=== PATIENT | male | born 1980 | race Caucasian/White ===

== ENCOUNTER 2016-10-23 23:30 | Inpatient (IN) | payer OTHER ==
[~2016-10-23] VITALS: Ht 165.1 cm; Wt 87.3 kg
[2016-10-23] MEDS ORDERED: LACTATED RINGER'S 1000ML 1,000 ML IV STA (23:43)
[2016-10-24] VITALS (9 sets, daily range): BP systolic 111–126; BP diastolic 65–78; PULSE 66–86; TEMP 36.7–36.9; O2SAT 93–100; BMI 32.0
[2016-10-24] MEDS ORDERED: HYDROmorphone INJ 1 MG/ML SYR IV PRN (00:15)
[2016-10-24] MEDS ORDERED: ONDANSETRON INJ 2 MG/ML 2 ML VIAL IV PRN ×2 (00:15→07:30)
[2016-10-24] MEDS ORDERED: PROMETHAZINE HCL INJ 12.5 MG in SODIUM CHLORIDE 0.9% 50ML 50 ML IV STA (00:20)
[2016-10-24] MEDS ORDERED: HYDROmorphone INJ 1 MG/ML SYR IV STA (00:20)
[2016-10-24] MEDS ORDERED: GLIP-197 PO (00:21)
--- NOTE | 2016-10-24 00:21 | EMERGENCY ROOM VISIT NOTE ---
History Report prepared by Miley: Kinga Posey Under the Supervision of: Dr. Chiquis Loja D.O. First contact with patient: 23:33 Stated Complaint: ABDOMINAL PAIN History of Present Illness The patient is a 36 year old male who presents to the Emergency Room with complaints of persistent RLQ abdominal pain starting 0200 last night. The patient was awakened from sleep by the pain. His stomach felt like it was in a knot. He went to the bathroom then and vomited. He has been vomiting since then. He went to [facility] and was diagnosed with acute appendicitis. He had a CT which showed a thickened fluid filled appendix measuring 2cm with surround inflammatory changes. He had a white count of 16.7. He was transferred to the ED here because they did not have a surgeon. He received IV fluids and antibiotics. His nausea has improved after being given Zofran. He notes he has had difficulty urinating and right flank pain. He denies any history of kidney or urinary problems. He was diagnosed with diabetes 2 weeks ago and started on glipizide. He notes that he has not taken it because he has been vomiting. He denies any history of hypertension. Source of History: patient, transfer records Onset: 0200 last night Position: abdomen (RLQ) Quality: other (pain) Timing: other (persistent) Associated Symptoms: + nausea, + vomiting, + urinary symptoms Note: Pt reports right flank pain. Review of Systems See HPI for pertinent positives & negatives. A total of 10 systems reviewed and were otherwise negative. Past Medical & Surgical Medical Problems: (1) Appendicitis (2) Diabetes Family History No pertinent family history stated. Social History Marital Status: Occupation Status: employed Current/Historical Medications Scheduled Glipizide (Glipizide Er), 5 MG PO DAILY Trazodone Hcl (Trazodone), 150 MG PO HS Scheduled PRN Albuterol Hfa (Ventolin Hfa), 2 PUFFS INH Q6H PRN for SOB/Wheezing Allergies Coded Allergies: No Known Allergies (Unverified , 10/24/16) Physical Exam Vital Signs Date Time Temp Pulse Resp B/P (MAP) Pulse Ox O2 Delivery O2 Flow Rate FiO2 10/24/16 00:01 96 24 161/99 98 Room Air 10/23/16 23:50 97 23 164/112 95 Room Air 10/23/16 23:39 36.8 95 15 167/111 94 Room Air Physical Exam HEENT: Head - normocephalic and atraumatic Pupils are equal, round, and reactive to light. Extraocular eye muscles are intact, and sclera are anicteric. Nose - moist nasal mucosa without discharge. Mouth - moist buccal mucosa. Oropharynx is nonerythematous and there is no tonsillar exudate or edema noted. Neck: Supple; no JVD, nuchal rigidity, cervical lymphadenopathy. Heart: Regular rate and rhythm. There is a normal S1 and S2 with no murmurs, clicks, or gallops appreciated. Lungs: Clear to auscultation bilaterally with no wheezes, rales, or rhonchi. Abdomen: Soft, RLQ tenderness to palpation, nondistended, with good bowel sounds. There are no palpable pulsatile masses or hepatosplenomegaly. There is no guarding, rigidity, or rebound noted. Back: Right CVA tenderness. Extremities: No evidence of cyanosis, clubbing, or edema. There are easily palpable peripheral pulses. Skin: warm and dry with good turgor and no rashes. Medical Decision & Procedures Laboratory Results Test 10/23/16 23:47 Bedside Glucose 220 mg/dl (70-99) Laboratory results per my review. Medications Administered Medications (Trade) Dose Ordered Sig/Elmo Route Start Time Stop Time Status Last Admin Dose Admin Lactated Ringer's 1,000 ml @ 200 mls/hr Q5H STAT IV 10/23/16 23:43 10/24/16 01:54 DC 10/23/16 23:49 200 MLS/HR Promethazine HCl 12.5 mg/Sodium Chloride 50.5 ml @ 204 mls/hr NOW STAT IV 10/24/16 00:20 10/24/16 00:34 DC 10/24/16 00:44 204 MLS/HR Hydromorphone HCl (Dilaudid Inj) 1 mg NOW STAT IV 10/24/16 00:20 10/24/16 00:22 DC 10/24/16 00:46 1 MG Procedure Medications: Lactated Ringer's 1000 ml @ 200 mls/hr IV, Dilaudid Inj 1 mg IV, Promethazine HCl 12.5 mg/Sodium Chloride 50.5 ml @ 204 mls/hr IV. ED Course 2334: I discussed the patient's case with Dr. Eduardo, [facility] general surgery. He will evaluate the patient for further management. 2337: The patient was evaluated in room B5. A complete history and physical examination were performed. Nursing notes and notes from [facility] were reviewed. I discussed findings and results with him. He verbalized agreement of the treatment plan. The patient will be evaluated for further management and care. 2343: Lactated Ringer's 1000 ml @ 200 mls/hr IV. 0001: I reevaluated the patient. His blood pressure has come down some. His blood sugar was 220. Dr. Eduardo is at bedside. 0020: Dilaudid Inj 1 mg IV, Promethazine HCl 12.5 mg/Sodium Chloride 50.5 ml @ 204 mls/hr IV. Medical Decision The patient is a 36 year old male who presents to the ED with abdominal pain. He was initially evaluated at [facility] where he was diagnosed with acute appendicitis by CT scan. The patient was noted to be hyperglycemic as he was recently diagnosed with diabetes and started on glipizide. Upon arrival to our emergency department, the patient was hypertensive. This began to come down on its own. Consults Time Called: 2330 Consulting Physician: Dr. Eduardo, [facility] general surgery Returned Call: [phone] I discussed the patient's case with him. He will evaluate the patient for further management. Impression Primary Impression: Acute appendicitis Additional Impression: Hyperglycemia Scribe Attestation The scribe's documentation has been prepared under my direction and personally reviewed by me in its entirety. I confirm that the note above accurately reflects all work, treatment, procedures, and medical decision making performed by me. Departure Information Dispostion Being Evaluated By Surgeon Referrals No Doctor, Assigned (PCP) Problem Qualifiers Primary Impression: Acute appendicitis Acute appendicitis type: with localized peritonitis Qualified Codes: K35.3 - Acute appendicitis with localized peritonitis
[2016-10-24] MEDS ORDERED: TRAZ100T29 PO (00:22)
[2016-10-24] MEDS ORDERED: VNTHFA/IN INH (00:23)
[2016-10-24] MEDS ORDERED: PROMETHAZINE HCL INJ 25 MG/ML 1 ML VIAL ONE (00:34)
--- NOTE | 2016-10-24 00:44 | History & Physical Bridge Note ---
H&P Re-Evaluation Bridge Note: I have examined the patient, reviewed the History & Physical and in the interval since the performance of the History & Physical I have noted the following changes of clinical significance: No changes noted h and p dictated stat line confirmation [id number]. dx acute appendicitis plan admit hydrate to OR for lap appy possible open after rehydration and med evaluation
[2016-10-24] MEDS ORDERED: PIPERACILL/TAZOBAC IV 3.375 GM in DEXTROSE 5% 100ML 100 ML IV STA (00:47)
--- NOTE | 2016-10-24 00:57 | Medical Consult ---
Consultation Date of Consultation: Oct 24, 2016. Attending Physician: Reason for Consultation: DM/ HTN/ preop assess History of Present Illness This is a 36 yo m with a history of DM ( recently diagnosed) and asthma that is presenting to us as a transfer from [place] for acute appendicitis. The patient notes that at 0200 the night prior the patient has sudden onset of vomiting with abdominal cramping. He has been vomiting non stop since 0200 and today started to suffer from right lower abdominal pain. He was evaluated in [place] and patient was found to have an elevated Bilirubin and leukocytosis and patient was sent to [facility] for further management. He currently notes he has 10/10 pain in the RLQ that is radiates to the mid abd upon palpation only. It is sharp in nature and improves if he does not move. He notes that he has never had any blood in his vomitus but has evolved from a yellow colour to green. He had diarrhea yesterday however this has since resolved. He does also feel " winded" but without chest pain. When discussing his past medical history he was only recently diagnosed with diabetes by his PCP. He was trialed on metformin however was unable to tolerate the GI side effects so he was changed to Glipizide. He has a history of asthma that he only uses albuterol for. He notes he uses it on a near daily basis and does not have a ICS for control. Finally, he notes he has has lost a total of 100 pounds in the last 3 years which is completely unintentional. Past Medical/Surgical History Medical Problems: (1) Acute appendicitis Status: Acute (2) Hyperglycemia Status: Acute Family History Stroke FATHER, Onset:50 Social History Smoking Status: Current Every Day Smoker Smokeless Tobacco Use: No Alcohol Use: socially Drug Use: none Marital Status: Housing Status: lives with family Occupation Status: employed Allergies Coded Allergies: No Known Allergies (Unverified , 10/24/16) Current Inpatient Medications Current Inpatient Medications Medications (Trade) Dose Ordered Sig/Elmo Route Start Time Stop Time Status Last Admin Dose Admin Lactated Ringer's 1,000 ml @ 200 mls/hr Q5H STAT IV 10/23/16 23:43 10/24/16 04:42 10/23/16 23:49 200 MLS/HR Lactated Ringer's 1,000 ml @ 200 mls/hr Q5H IV 10/24/16 00:15 11/23/16 00:14 UNV Piperacillin Sod/ Tazobactam Sod 3.375 gm/Dextrose 115 ml @ 200 mls/hr ONE STAT IV 10/24/16 00:47 10/24/16 01:21 Hydromorphone HCl (Dilaudid Inj) 1 mg Q3R PRN IV 10/24/16 00:15 11/07/16 00:14 Ondansetron HCl (Zofran Inj) 4 mg Q6H PRN IV 10/24/16 00:15 11/23/16 00:14 Review of Systems Constitutional: + chills, + sweats, No fever Eyes: No worsening of vision ENT: No hearing loss Respiratory: + shortness of breath, No cough, No sputum, No wheezing, No dyspnea on exertion, No dyspnea at rest Cardiovascular: No chest pain Abdomen: + pain, + nausea, + vomiting, + diarrhea, No constipation, No GI bleeding Musculoskeletal: No joint pain, No muscle pain Genitourinary - Male: No hematuria, No urinary incontinence Neurologic: No weakness, No numbness/tingling, No balance problems Psychiatric: No depression symptoms Endocrine: No fatigue Hematologic / Lymphatic: No abnormal bleeding/bruising Integumentary: No rash Physical Exam Date Time Temp Pulse Resp B/P (MAP) Pulse Ox O2 Delivery O2 Flow Rate FiO2 10/24/16 00:55 103 18 160/107 96 10/24/16 00:45 103 18 160/107 96 Nasal Cannula 2.0 10/24/16 00:44 88 Room Air 10/24/16 00:01 96 24 161/99 98 Room Air 10/23/16 23:50 97 23 164/112 95 Room Air 10/23/16 23:39 36.8 95 15 167/111 94 Room Air General Appearance: no apparent distress Head: normocephalic, atraumatic Eyes: normal inspection ENT: normal ENT inspection Neck: supple Respiratory/Chest: normal breath sounds, no respiratory distress, no accessory muscle use Cardiovascular: regular rate, rhythm, no murmur, normal peripheral pulses Abdomen/GI: normal bowel sounds, + tenderness (RLQ), + guarding Back: normal inspection Extremities/Musculoskelatal: normal inspection, no calf tenderness, no pedal edema Neurologic/Psych: alert, normal mood/affect, oriented x 3 Skin: normal color, warm/dry, no rash Lymphatic: no adenopathy Laboratory Results Last 24 Hours Test 10/23/16 23:47 Bedside Glucose 220 mg/dl Assessment & Plan This is a 36 yo m suffering from acute appendicitis and has a history of DM and asthma Per Op Assessment; RCRI 0.9% - patient does not have a strong CVS history, no History of ND or stroke - Based on RCRI patient is an acceptable candidate for this surgery - Pre op EKG and CXR per primary Acute appendicitis - Pain control per primary team - plan is for surgery in the am - LR for hydration per primary team - elevated bilirubin in [place], INR level to assess liver function DMII - glipizide held while NPO for surgery - Insulin CF of 30, assess for adjustment - BSG AC/ HS Asthma- Mild persistent asthma - Duoneb available prn - patient would benefit from a daily low dose ICS as his asthma is currently not well controlled Unintentional weight loss - concerning for malignancy, consider screening for colon ca and other malignancies in outpt setting - this is also associated with DM however. Insomnia - Trazodone hs cont'd DVT Prophylaxis SCD and consider chemical prophylaxis post op FULL CODE Resident Physician Supervision Note: Pt seen/examined independently. I discussed the case with the resident and agree with the findings and plan as documented in the note. Any exceptions or clarifications are listed here: 36 y/o M Hx asthma and DM presenting with abdominal pain and diagnosed with appendicitis - subsequently admitted by surgery. We are asked to see for ezequiel- op management. OE AAO x 3 S1,2 R CTAB Avoided abdominal palpation No CCE P: Agree with RCRI assessment per resident - no obvious need for further workup prior to surgery - med will follow in post-op period Documented By: Onur Ricks Additional Copies To Natanael Shah D.O.
[2016-10-24] MEDS ORDERED: ALBUT/IPRATROP 3MG/0.5MG NEB 3 ML VIAL INH PRN (01:00)
--- NOTE | 2016-10-24 01:20 | HISTORY & PHYSICAL EXAMINATION ---
DATE OF ADMISSION: 10/24/2016 Seen in the Emergency Room at 12:00 midnight on 10/24/2016. SUMMARY: This is a 36-year-old gentleman that I was called by Dr. iPnedo from [facility] at approximately 9:00 last evening with the patient that presented there with approximately 24-hour history of abdominal pain, vomiting that progressively got worse with pain in the right lower quadrant, and had a CAT scan of the abdomen that showed the patient had acute uncomplicated appendicitis. He wanted to know if the patient could be transferred here to [facility] and I asked them to transfer to the ER and let ER physician here see the patient, which they did. The patient apparently has had as stated above 24-hour history of ongoing emesis with abdominal pain progressively getting worse to the point that he was seen down in the Emergency Room with the above findings. PAST MEDICAL HISTORY: Pretty much unremarkable except that he stated that in the last 2 or 3 weeks prior to admission, he was diagnosed with diabetes and has been started on a pill namely glipizide. Other than that, his past medical history is pretty much unremarkable. He does have a history of smoking and occasional alcohol use. He stated he has lost lisy 100lbs last few years unintentional ? ALLERGIES: He has no known allergies. FAMILY HISTORY: Noncontributory. PAST SURGICAL HISTORY: He denies any previous surgery. PHYSICAL EXAMINATION: GENERAL: As I see him down in the Emergency Room at this time, Gwyn looks significantly dry, although he did have already a liter of fluid at [facility] and IV is running at 200 now. HEAD: Normocephalic. EYES: PERRLA but he does have a little scleral icterus. NECK: No cervical lymphadenopathy. HEART: Normal sinus rhythm. LUNGS: Clear. His pulse rate is probably 96. ABDOMEN: Soft, it is nontender except exquisite tenderness in the right flank area and right lower quadrant area consistent with the above findings of appendicitis. He does seem like he has lost some weight 100 lbs last few years by clinical exam, easily mobile redundant fatty apron his BMI is 31. EXTREMITIES: Grossly normal. The CAT scan report was reviewed. A 2 cm appendix with no periappendiceal fluid.(denies flushing or diarrhea). LABORATORY DATA: White count from [facility] showed him to have a white count of 16,000 with a significant left shift. Hemoglobin is 18.9. BUN is 14 with a creatinine of 1.2. Bilirubin total is 3.0. VITAL SIGNS: Temperature of 36.8, pulse rate 95-96, his respiratory rate is 24, his blood pressure is 161/99, O2 sats 98% on room air. Also noted in his history is the patient has asthma and he takes albuterol on a p.r.n. basis but not routinely. IMPRESSION: With the above findings, no real extreme need to rich into surgery at this point. I discussed with the patient to resuscitate him fluid estrada as he appeared clinically dry, have medicine see him for his diabetes which is mildly elevated with blood sugar of 260 but his hypertension also which in the ER may be related to pain. We will proceed with laparoscopic appendectomy, possible open in a few hours. Risks and complications were explained to the patient including bleeding, infection, converting to an open procedure, and he would like to proceed accordingly. He already had Zosyn down in the ER at [facility] at approximately 9:00 last evening, we will repeat another dose at about 3:00 a.m. MTDD
[2016-10-24] MEDS ORDERED: ALBUT/IPRATROP 3MG/0.5MG NEB 3 ML VIAL INH STA (01:52)
[2016-10-24] MEDS ORDERED: LACTATED RINGER'S 1000ML 1,000 ML IV SCH (02:00)
[2016-10-24] MEDS ORDERED: GLUCOSE 10 TABS/TUBE PO PRN (02:00)
[2016-10-24] MEDS ORDERED: DEXTROSE 50% 50 ML SYR IV PRN (02:00)
[2016-10-24] MEDS ORDERED: GLUCOSE 40% GEL 15 GM TUBE PO PRN (02:00)
[2016-10-24] MEDS ORDERED: GLUCAGON FOR INJ 1 MG VIAL SQ PRN (02:00)
[2016-10-24 02:34] LABS: BASO % 0.1 %; BASO ABS # 0.02 K/uL (0-0.2); COMPLETE YES; EOS % 0.1 %; HEMATOCRIT 50.9 % (42-52); IG% 0.2 %; LYMPH % 6.2 %; LYMPH ABS # 1.05 K/uL (1.2-3.4); MEAN CORPUSCULAR HEMOGLOBIN 28.5 pg (25-34); MEAN PLATELET VOLUME 12.1 fL (7.4-10.4); MONO % 9.3 %; NEUT % 84.1 %; PLATELET COUNT 196 K/uL (130-400); RED BLOOD COUNT 6.06 M/uL (4.7-6.1); WHITE BLOOD COUNT 17.05 K/uL (4.8-10.8)
[2016-10-24 02:41] LABS: PARTIAL THROMBOPLASTIN RATIO 1.1; PROTHROMBIN TIME (PATIENT) 11.2 SECONDS (9.0-12.0)
[2016-10-24 02:54] LABS: CALCIUM 8.9 mg/dl (8.5-10.1); CREATININE 0.83 mg/dl (0.60-1.40); POTASSIUM 3.8 mmol/L (3.5-5.1)
[2016-10-24 02:56] LABS: ALB/GLOB RATIO 0.9 (0.9-2)
[2016-10-24] MEDS ORDERED: NURSING DECISION MEDICATION ORDER SCH (03:15)
[2016-10-24] MEDS: INSULIN ASPART 100 UNITS/ML 3 ML PEN SC SCH ×6 (03:22→21:00)
[2016-10-24] MEDS ORDERED: LIDOCAINE/EPINEPHRINE 1% 20 ML VIAL ONE (06:11)
[2016-10-24] MEDS ORDERED: FENTANYL CITRATE INJ 50 MCG/1 ML 2 ML VIAL ONE ×2 (06:15)
[2016-10-24] MEDS ORDERED: MoRPHine SULFATE PF 1 MG/ML 10 ML AMP/VIAL ONE (06:33)
[2016-10-24] MEDS ORDERED: ONDANSETRON INJ 2 MG/ML 2 ML VIAL ONE ×2 (06:52→06:55)
[2016-10-24] MEDS ORDERED: DEXAMETHASONE SOD INJ 4 MG/ML VIAL ONE (06:52)
[2016-10-24] MEDS ORDERED: SUCCINYLCHOLINE CHLORIDE 20 MG/ML 10 ML VIAL IV ONE (06:52)
[2016-10-24] MEDS ORDERED: ROCURONIUM BROMIDE 10 MG/ML 5 ML VIAL IV ONE (06:52)
[2016-10-24] MEDS ORDERED: KETOROLAC TROMETHAMINE 30 MG/ML VIAL ONE (06:55)
[2016-10-24] MEDS ORDERED: INSULIN ASPART 100 UNITS/ML 3 ML PEN SC SCH ×2 (07:00→18:30)
[2016-10-24] MEDS ORDERED: GLYCOPYRROLATE INJ 0.2 MG/ML VIAL ONE (07:04)
[2016-10-24] MEDS ORDERED: NEOSTIGMINE METHYLSULFATE 5 MG/5 ML SYR ONE (07:04)
--- NOTE | 2016-10-24 07:28 | [facility] Operative Report ---
Operative Report Operative Date Oct 24, 2016. Pre-Operative Diagnosis Acute appendicitis Post-Operative Diagnosis Acute appendicitis Procedure(s) Performed Laparoscopic Appendectomy Surgeon Dr. Anant Eduardo It Operations Specialist Surgeon(s) None Estimated Blood Loss 5ML Findings acute non ruptures appendicitis Specimens Micro Urine for Culture and senitivity Permanent specimen A: Appendix Disposition Recovery Room / PACU Indications acute appendicitis Description of Procedure lap appendectomy OR summary dictated confirmation number [id number] I attest to the content of the Intraoperative Record and any orders documented therein. Any exceptions are noted below.
[2016-10-24] MEDS ORDERED: FENTANYL CITRATE INJ 50 MCG/1 ML 2 ML VIAL IV PRN (07:30)
[2016-10-24] MEDS ORDERED: ATROPINE SULFATE 0.1 MG/ML 5ML SYR IV PRN (07:30)
[2016-10-24] MEDS ORDERED: EpHEDrine SULFATE INJ 50 MG/ML AMP IV PRN (07:30)
[2016-10-24] MEDS ORDERED: PNEUMOCOCCAL POLYSACCHARIDES 25 MCG/0.5 ML VIAL/SYR IM. ONE (08:00)
[2016-10-24] MEDS ORDERED: PNEUMOCOCCAL ADMINISTRATION CHARGE ONE (08:00)
--- NOTE | 2016-10-24 08:18 | Anesthesiology Progress Note ---
Anesthesia Post Op Note Date & Time Oct 24, 2016 at 08:18 Vital Signs Pain Intensity: 1 Vital Signs Past 12 Hours Date Time Temp Pulse Resp B/P (MAP) Pulse Ox O2 Delivery O2 Flow Rate FiO2 10/24/16 08:15 36.3 77 18 127/77 96 Nasal Cannula 3 10/24/16 08:05 79 18 129/78 96 Nasal Cannula 3 10/24/16 07:55 76 18 126/74 96 Oxymask 10 10/24/16 07:45 80 18 128/79 97 Oxymask 10 10/24/16 07:36 36.1 84 18 139/87 98 Oxymask 10 10/24/16 02:12 Nasal Cannula 2.0 10/24/16 02:05 36.7 82 16 126/78 96 Room Air 10/24/16 01:30 97 18 122/79 96 Nasal Cannula 2.0 10/24/16 00:55 103 18 160/107 96 10/24/16 00:45 103 18 160/107 96 Nasal Cannula 2.0 10/24/16 00:44 88 Room Air 10/24/16 00:01 96 24 161/99 98 Room Air 10/23/16 23:50 97 23 164/112 95 Room Air 10/23/16 23:39 36.8 95 15 167/111 94 Room Air Notes Mental Status: alert / awake / arousable, participated in evaluation Pt Amnestic to Procedure: Yes Nausea / Vomiting: adequately controlled Pain: adequately controlled Airway Patency, RR, SpO2: stable & adequate BP & HR: stable & adequate Hydration State: stable & adequate Anesthetic Complications: no major complications apparent
[2016-10-24] MEDS ORDERED: PIPERACILL/TAZOBAC IV 3.375 GM in DEXTROSE 5% 100ML 100 ML IV SCH (09:00)
[2016-10-24] MEDS: LACTATED RINGER'S 1000ML 1,000 ML IV SCH ×2 (10:17→18:47)
[2016-10-24] MEDS: OXYCODONE/ACETAMINOPHEN 5-325 TAB PO PRN ×2 (10:32→20:01)
[2016-10-24] MEDS ORDERED: NURSING VERBAL MED ORDER ONE (10:45)
[2016-10-24] MEDS ORDERED: INSULIN GLARGINE SOLOSTAR 100 UNITS/ML 3 ML PEN SC ONE (11:38)
--- NOTE | 2016-10-24 11:56 | Hospitalist Progress Note ---
Hospitalist Progress Note Date of Service Oct 24, 2016. (Salvador Luis MD) Subjective Pt evaluation today including: conversation w/ patient, physical exam, chart review, lab review, conversation w/ consultant dietitian, review of inpatient medication list Pain: None PO Intake: Good Voiding: no voiding problems Patient went for appendectomy this morning with Dr. Eduardo. I saw the patient post op. He denied any abdominal pain, vomiting, diarrhea, or nausea Constitutional: No fever, No chills Respiratory: No cough, No wheezing, No shortness of breath Cardiovascular: No chest pain, No edema, No palpitations Abdomen: No pain, No nausea, No vomiting, No diarrhea Musculoskeletal: No joint pain, No muscle pain Male : No dysuria, No urinary frequency, No incontinence Neurologic: No weakness, No numbness/tingling Heme: No abnormal bleeding/bruising Skin: No rash, No itch, No new/changing skin lesions (Salvador Luis MD) Medications Current Inpatient Medications Medications (Trade) Dose Ordered Sig/Elmo Route Start Time Stop Time Status Last Admin Dose Admin Hydromorphone HCl (Dilaudid Inj) 1 mg Q3R PRN IV 10/24/16 00:15 11/07/16 00:14 Ondansetron HCl (Zofran Inj) 4 mg Q6H PRN IV 10/24/16 00:15 11/23/16 00:14 Albuterol/ Ipratropium (Duoneb) 3 ml Q4R PRN INH 10/24/16 01:00 11/23/16 00:59 Trazodone HCl (Desyrel Tab) 150 mg HS PO 10/24/16 21:00 11/23/16 20:59 Glucose (Glucose 40% Gel) 15-30 GRAMS 15 GRAMS... UD PRN PO 10/24/16 02:00 11/23/16 01:59 Glucose (Glucose Chew Tab) 4-8 Tablets 4 Tabl... UD PRN PO 10/24/16 02:00 11/23/16 01:59 Dextrose (Dextrose 50% 50ML Syringe) 25-50ML OF 50% DW IV FOR... UD PRN IV 10/24/16 02:00 11/23/16 01:59 Glucagon (Glucagon Inj) 1 mg UD PRN SQ 10/24/16 02:00 11/23/16 01:59 Lactated Ringer's 1,000 ml @ 125 mls/hr Q8H IV 10/24/16 07:45 11/23/16 07:44 10/24/16 10:17 125 MLS/HR Heparin Sodium (Porcine) (Heparin Sq 5000 Unit/0.5ml) 5,000 unit Q8 SQ 10/24/16 14:00 11/23/16 13:59 10/24/16 13:32 5,000 UNIT Oxycodone/ Acetaminophen (Percocet 5-325mg Tab) 1 tab Q4H PRN PO 10/24/16 07:45 11/07/16 07:44 10/24/16 10:32 1 TAB Insulin Aspart (novoLOG ASPART) SLIDING SCALE G... ACHS SC 10/24/16 12:00 11/23/16 11:59 10/24/16 13:30 6 UNITS Insulin Glargine (Lantus Solostar Pen) 5 units DAILY SC 10/25/16 09:00 11/24/16 08:59 Piperacillin Sod/ Tazobactam Sod 3.375 gm/Dextrose 115 ml @ 200 mls/hr Q6H IV 10/24/16 16:00 11/03/16 15:59 (Salvador Luis MD) Objective Vital Signs Date Time Temp Pulse Resp B/P (MAP) Pulse Ox O2 Delivery O2 Flow Rate FiO2 10/24/16 11:25 86 16 113/65 (81) 93 Room Air 10/24/16 10:22 83 16 111/66 (81) 93 Room Air 10/24/16 09:25 81 18 120/75 (90) 98 10/24/16 08:57 81 18 118/71 (87) 98 Nasal Cannula 2.0 10/24/16 08:25 36.8 82 18 122/70 (87) 96 Nasal Cannula 3.0 10/24/16 08:25 Nasal Cannula 3.0 10/24/16 08:15 36.3 77 18 127/77 96 Nasal Cannula 3 10/24/16 08:05 79 18 129/78 96 Nasal Cannula 3 10/24/16 07:55 76 18 126/74 96 Oxymask 10 10/24/16 07:45 80 18 128/79 97 Oxymask 10 10/24/16 07:36 36.1 84 18 139/87 98 Oxymask 10 10/24/16 02:12 Nasal Cannula 2.0 10/24/16 02:05 36.7 82 16 126/78 96 Room Air 10/24/16 01:30 97 18 122/79 96 Nasal Cannula 2.0 10/24/16 00:55 103 18 160/107 96 10/24/16 00:45 103 18 160/107 96 Nasal Cannula 2.0 10/24/16 00:44 88 Room Air 10/24/16 00:01 96 24 161/99 98 Room Air 10/23/16 23:50 97 23 164/112 95 Room Air 10/23/16 23:39 36.8 95 15 167/111 94 Room Air (Salvador Luis MD) Physical Exam General Appearance: WD/WN, no apparent distress ENT: hearing grossly normal Respiratory/Chest: lungs clear, no respiratory distress, no accessory muscle use Cardiovascular: regular rate, rhythm, no edema, no JVD, no murmur Abdomen: normal bowel sounds, soft, no organomegaly, + tenderness (mild tenderness throughout, laparascopic incisions on left side of abdomen (without any erythema)), + pertinent finding (no rebound or guarding) Extremities: non-tender, no calf tenderness, normal capillary refill Neurologic/Psychiatric: alert, normal mood/affect, oriented x 3 (Salvador Luis MD) Laboratory Results Last 24 Hours Test 10/23/16 23:47 10/24/16 02:10 10/24/16 05:46 10/24/16 07:42 Bedside Glucose 220 mg/dl 200 mg/dl 184 mg/dl White Blood Count 17.05 K/uL Red Blood Count 6.06 M/uL Hemoglobin 17.3 g/dL Hematocrit 50.9 % Mean Corpuscular Volume 84.0 fL Mean Corpuscular Hemoglobin 28.5 pg Mean Corpuscular Hemoglobin Concent 34.0 g/dl Platelet Count 196 K/uL Mean Platelet Volume 12.1 fL Neutrophils (%) (Auto) 84.1 % Lymphocytes (%) (Auto) 6.2 % Monocytes (%) (Auto) 9.3 % Eosinophils (%) (Auto) 0.1 % Basophils (%) (Auto) 0.1 % Neutrophils # (Auto) 14.34 K/uL Lymphocytes # (Auto) 1.05 K/uL Monocytes # (Auto) 1.59 K/uL Eosinophils # (Auto) 0.01 K/uL Basophils # (Auto) 0.02 K/uL RDW Standard Deviation 37.4 fL RDW Coefficient of Variation 12.5 % Immature Granulocyte % (Auto) 0.2 % Immature Granulocyte # (Auto) 0.04 K/uL Prothrombin Time 11.2 SECONDS Prothromb Time International Ratio 1.0 Activated Partial Thromboplast Time 28.8 SECONDS Partial Thromboplastin Ratio 1.1 Sodium Level 137 mmol/L Potassium Level 3.8 mmol/L Chloride Level 102 mmol/L Carbon Dioxide Level 29 mmol/L Anion Gap 6.0 mmol/L Blood Urea Nitrogen 13 mg/dl Creatinine 0.83 mg/dl Est Creatinine Clear Calc Drug Dose 126.2 ml/min Estimated GFR () 132.1 Estimated GFR (Non- 114.0 BUN/Creatinine Ratio 16.0 Random Glucose 250 mg/dl Calcium Level 8.9 mg/dl Total Bilirubin 3.1 mg/dl Aspartate Amino Transf (AST/SGOT) 4 U/L Alanine Aminotransferase (ALT/SGPT) 26 U/L Alkaline Phosphatase 73 U/L Total Protein 7.5 gm/dl Albumin 3.5 gm/dl Globulin 4.0 gm/dl Albumin/Globulin Ratio 0.9 Lipase 80 U/L Test 10/24/16 08:26 Bedside Glucose 206 mg/dl (Salvador Luis MD) Diagnostic Results Results Past 24 Hours Test 10/23/16 23:47 10/24/16 02:10 10/24/16 05:46 10/24/16 07:42 Range/Units Bedside Glucose 220 200 184 70-99 mg/dl White Blood Count 17.05 4.8-10.8 K/uL Red Blood Count 6.06 4.7-6.1 M/uL Hemoglobin 17.3 14.0-18.0 g/dL Hematocrit 50.9 42-52 % Mean Corpuscular Volume 84.0 80-100 fL Mean Corpuscular Hemoglobin 28.5 25-34 pg Mean Corpuscular Hemoglobin Concent 34.0 32-36 g/dl Platelet Count 196 130-400 K/uL Mean Platelet Volume 12.1 7.4-10.4 fL Neutrophils (%) (Auto) 84.1 % Lymphocytes (%) (Auto) 6.2 % Monocytes (%) (Auto) 9.3 % Eosinophils (%) (Auto) 0.1 % Basophils (%) (Auto) 0.1 % Neutrophils # (Auto) 14.34 1.4-6.5 K/uL Lymphocytes # (Auto) 1.05 1.2-3.4 K/uL Monocytes # (Auto) 1.59 0.11-0.59 K/uL Eosinophils # (Auto) 0.01 0-0.5 K/uL Basophils # (Auto) 0.02 0-0.2 K/uL RDW Standard Deviation 37.4 36.4-46.3 fL RDW Coefficient of Variation 12.5 11.5-14.5 % Immature Granulocyte % (Auto) 0.2 % Immature Granulocyte # (Auto) 0.04 0.00-0.02 K/uL Prothrombin Time 11.2 9.0-12.0 SECONDS Prothromb Time International Ratio 1.0 0.9-1.1 Activated Partial Thromboplast Time 28.8 21.0-31.0 SECONDS Partial Thromboplastin Ratio 1.1 Sodium Level 137 136-145 mmol/L Potassium Level 3.8 3.5-5.1 mmol/L Chloride Level 102 98-107 mmol/L Carbon Dioxide Level 29 21-32 mmol/L Anion Gap 6.0 3-11 mmol/L Blood Urea Nitrogen 13 7-18 mg/dl Creatinine 0.83 0.60-1.40 mg/dl Est Creatinine Clear Calc Drug Dose 126.2 ml/min Estimated GFR () 132.1 Estimated GFR (Non- 114.0 BUN/Creatinine Ratio 16.0 10-20 Random Glucose 250 70-99 mg/dl Calcium Level 8.9 8.5-10.1 mg/dl Total Bilirubin 3.1 0.2-1 mg/dl Aspartate Amino Transf (AST/SGOT) 4 15-37 U/L Alanine Aminotransferase (ALT/SGPT) 26 12-78 U/L Alkaline Phosphatase 73 45-117 U/L Total Protein 7.5 6.4-8.2 gm/dl Albumin 3.5 3.4-5.0 gm/dl Globulin 4.0 2.5-4.0 gm/dl Albumin/Globulin Ratio 0.9 0.9-2 Lipase 80 73-393 U/L Test 10/24/16 08:26 10/24/16 12:04 Range/Units Bedside Glucose 206 260 70-99 mg/dl Microbiology Results 10/24/16 Urine Culture, Received Pending (Salvador Luis MD) Assessment and Plan This is a 36 yo m s/p appendectomy and has a history of DM and asthma. We have been consulted to be involved in the patients medical management Acute appendicitis - Pain control with percocet q4 prn - surgery this am without any rupture - decrease LR to 50mls/hr - Pip Tazo IV per primary team - diet advanced to regular diabetic diet DMII - glipizide held - lantus 5 units qhs and ISS with carb coverage - BSG AC/ HS - Ordered HBA1c - 150 pound unintentional weight loss, likely to be diabetes but must keep differential broad for outpatient workup Asthma- Mild persistent asthma - Duoneb available prn - patient would benefit from a daily low dose ICS as his asthma is currently not well controlled. will defer to PCP Insomnia - Trazodone hs cont'd DVT Prophylaxis - heparin subq 5000 units q8 Dispo - discharge tomorrow - follow up with PCP FULL CODE Continued [facility] stay due to: multiple IV medications needed Discharge planning: home (Salvador Luis MD) Reviewed: Pt Seen/Exam by Me (Beverley Burks MD) History Resident Physician Supervision Note: I interviewed and examined the patient. Discussed with Dr. Luis and agree with findings and plan as documented in the note. Any exceptions or clarifications are listed here: Pt with some abd pain but much improved from previous, no N/V and jimbo diet. He states he has had weight loss of over 100 lbs and polydipsia, polyuria developing for months to years as well. Never had labs until recently with PCP and started on metformin. He cannot recall having a HgbA1C at all. He was called and told his labs were "normal." At home, glucose checks usually 200-240 in AM, 300+ in afternoon, and mid 200s in evening. Started on insulin gtt here post-op due to hyperglycemia in the 300s. Vitals reviewed NAD, AAOx3 RRR no mgr CTAB breathing unlabored Abd+ BS, soft, mild TTP at incision sites but no guarding or rebound tenderness Ext no edema SKin: incision sites with steri strips in place 36 yo male with a h/o DMII, here with acute appendicitis DMII--> recently dxd and placed on metformin with significant diarrhea, switched to glipizide just days prior to admission for acute appy -check A1C for idea of control but based on report of home glucose checks, I suspect HgbA1C will be > 10%. -started Lantus here and now on insulin gtt--> calculate need for insulin tomorrow and dc to home on Lantus with Novolog for largest meal of day for simpler regimen to start Discussed importance of good glycemic control, need for pancreatic rest by using insulin, Ophthalmology consultation as outpt, checking feet daily, will need ACEI and statin eventually as well. Recommend stopping glipizide as doesn' t need when on insulin -consider restarting metformin perhaps at lower dose or XR form to limit diarrhea if pt agreeable Documented By: Beverley Burks (Beverley Burks MD)
--- NOTE | 2016-10-24 12:49 | DIAGNOSTIC IMAGING REPORT ---
CHEST ONE VIEW PORTABLE HISTORY: 36 years-old Male asthma preop preoperative exam. History of asthma. COMPARISON: CT abdomen and pelvis 10/23/2016 TECHNIQUE: Portable upright AP view of the chest FINDINGS: Cardiac silhouette is within normal limits. There is minimal subsegmental atelectasis of the left lung base without pneumothorax, pleural effusion or focal lobar airspace consolidation. Bones are grossly intact. IMPRESSION: Minimal left basilar subsegmental atelectasis without acute cardiopulmonary process. The above report was generated using voice recognition software. It may contain grammatical, syntax or spelling errors. Electronically signed by: Mathieu Lopez M.D. 10/24/2016 12:47 PM Dictated Date/Time: 10/24/2016 12:45 PM
[2016-10-24] MEDS: HEPARIN SOD 5000 UNIT/0.5 ML CARP SQ SCH ×2 (13:32→22:40)
[2016-10-24] MEDS: PIPERACILL/TAZOBAC IV 3.375 GM in DEXTROSE 5% 100ML 100 ML IV SCH ×2 (16:14→22:38)
[2016-10-24] MEDS ORDERED: INSULIN PROTOCOL GOAL RANGE ONE ×2 (18:15→19:00)
[2016-10-24] MEDS ORDERED: INSULIN IV INFUSION PROTOCOL SCH (18:21)
[2016-10-24] MEDS ORDERED: MODERATE STRESS LEVEL ONE (19:00)
[2016-10-24] MEDS ORDERED: INSULIN IV INFUSION PROTOCOL STA (19:00)
[2016-10-24] MEDS ORDERED: INSULIN HUMAN REGULAR IV BOLUS 2 UNIT in SYRINGE 0 ML IV SCH (20:00)
--- NOTE | 2016-10-24 20:35 | OPERATIVE REPORT ---
DATE OF OPERATION: 10/24/2016 SURGEON: Dr. Eduardo. PREOPERATIVE DIAGNOSIS: Acute appendicitis. POSTOPERATIVE DIAGNOSES: Same. Acute nonruptured appendicitis. PROCEDURE: Laparoscopic appendectomy. SUMMARY: The patient was taken to the operating room theater. Mckeon catheter inserted. The abdomen was prepped with Betadine solution and properly draped. I made a small transverse incision above the umbilicus sufficient enough to place a Veress needle followed by CO2 followed by a 5 mm trocar. Point of entry inspected and no injury identified. Direct visualization, we had the patient in the left lateral position, slight Trendelenburg and visualized right lower quadrant, could not see anything of significant as far as surface of the bowel or cecal area. Therefore, we placed a 5 mm right upper quadrant port with preemptive local analgesia 1% Xylocaine. At this point, when maneuvered, it could identify what appeared to be an appendix coming from almost the retrocecal area but not significantly towards the midline. There was significant amount of fatty tissue in that area. At this point, I converted the 5 mm umbilical area to a 10 mm trocar and then placed another 5 mm trocar shelter between the symphysis pubis and the umbilical ligament. At this point, from these 2 areas we were able to identify acutely inflamed appendix which was coming medially over the terminal ileum. At this point, I freed up the white line of Toldt enough sufficient enough to mobilize the cecum and deliver tissue off the terminal ileum. I created a window between the mesoappendix and the base of the cecum sufficient enough to place a load of the purple stapler across it. There appeared to be no evidence of any inflammation right at the takeoff of the appendix. Having identified this, we then elevated the mesoappendix sufficiently enough and also the terminal ileum to fire another load of the stapler. Hemostasis appeared satisfactory. We irrigated the area. There was no active bleeding. Placed the appendix in an Endopouch and took it out through the umbilical port ,the appendix was quite thickened, less than 1 cm or so actually came off and broke off the bag at the level of the skin edge. We took all this instruments and we took this out was get off the field to try to remain as sterile as possible. Having accomplished this, after changing my gloves, I went on and placed the 11 mm trocar back in the umbilical area, checked the right lower quadrant significantly which was no active bleeding. We irrigated the area, we have placed the patient in reverse Trendelenburg, flat and then irrigated sufficient enough to water was clear. There was no evidence of any bleeding and suctioned out the pelvic area. Individual trocars removed and last umbilical trocar. Fascial stitch 0 Vicryl was used for the umbilical area, the other one is 4-0 Monocryl. Steri-Strips applied. The procedure was tolerated well by the patient. Estimated blood loss approximately 5 mL. The patient was taken to recovery room in good condition. I attest to the content of the Intraoperative Record and any orders documented therein. Any exceptions are noted below. MTDD
[2016-10-24] MEDS: INSULIN REGULAR 250 UNITS in SODIUM CHLORIDE 0.9% 250ML 250 ML IV SCH ×2 (21:45→23:12)
[2016-10-24] MEDS: TRAZODONE HCL 50 MG TAB PO SCH ×2 (21:58→22:00)
[2016-10-25 04:00] VITALS: BP 124/76; PULSE 79; TEMP 36.6; O2SAT 97
[2016-10-25] MEDS: OXYCODONE/ACETAMINOPHEN 5-325 TAB PO PRN ×2 (04:52→13:41)
[2016-10-25] MEDS: PIPERACILL/TAZOBAC IV 3.375 GM in DEXTROSE 5% 100ML 100 ML IV SCH ×3 (04:52→16:15)
--- NOTE | 2016-10-25 06:07 | Discharge Instructions ---
Discharge Instructions Date of Service Oct 25, 2016. Admission Reason for Admission: Appendicitis, Diabetes Discharge Discharge Diagnosis / Problem: acute appendicitis, diabetes Discharge Goals Goal(s): Decrease discomfort Activity Recommendations Activity Limitations: as noted below (no lifting greater than 10 lbs for one week) May Resume Sexual Activity: when tolerated Shower/Bathe: no limitations Driving or Machine Use: resume 3 days after discharge . Instructions / Follow-Up Instructions / Follow-Up call [phone] for any problems return office 1 week call above number for appointment office at [phone] [facility] [address] Edu[place] [facility] [place] surgery may take motrin or advil for pain as needed Current Hospital Diet Patient's current hospital diet: Diabetes Type 2 Diet Discharge Diet Recommended Diet: Regular Diet Procedures Procedures Performed: Laparoscopic Appendectomy Pending Studies Studies pending at discharge: no Laboratory Results Hemoglobin A1c Test 10/25/16 05:53 Range/Units Medical Emergencies . Who to Call and When: Medical Emergencies: If at any time you feel your situation is an emergency, please call 911 immediately. . Non-Emergent Contact Non-Emergency issues call your: Primary Care Provider . "Provider Documentation" section prepared by Anant Eduardo. . VTE Core Measure Inpt VTE Proph given/why not?: Unfractionated heparin SQ
[2016-10-25] MEDS: INSULIN REGULAR 250 UNITS in SODIUM CHLORIDE 0.9% 250ML 250 ML IV SCH ×6 (06:09→14:00)
[2016-10-25] MEDS: HEPARIN SOD 5000 UNIT/0.5 ML CARP SQ SCH ×2 (06:10→13:29)
[2016-10-25 06:17] LABS: HEMATOCRIT 41.6 % (42-52); MEAN CELL VOLUME 85.8 fL (80-100); MEAN CORPUSCULAR HEMOGLOBIN 30.1 pg (25-34); MEAN CORPUSCULAR HGB CONC 35.1 g/dl (32-36); PLATELET COUNT 157 K/uL (130-400); RED BLOOD COUNT 4.85 M/uL (4.7-6.1); WHITE BLOOD COUNT 10.26 K/uL (4.8-10.8)
--- NOTE | 2016-10-25 06:17 | HISTORY & PHYSICAL EXAMINATION ---
DATE OF ADMISSION: 10/25/2016 SUBJECTIVE: Gwyn is less than 24 hours postoperative laparoscopic appendectomy. He is resting comfortably with significant other is at bedside. He is alert, coherent. Intraoperative findings were discussed with the patient. His last vitals showed a temperature of 36.6, pulse 79, respirations 16, blood pressure 124/76, O2 sats 92% on room air. He has voided without any problem. Laboratory study this morning is pending. His chemistries shows a glucose to be in better control. His abdomen is completely benign. Steri-Strips are intact. From my point of view, the patient could be discharged today if okay with the medical service. I have asked to return to our office in 1 week. She will not go to work until we see him in 1 week's time. He may shower, should not lift anything heavier than 10 pounds. The lab this morning as stated is still pending.
[2016-10-25 07:05] LABS: BUN/CREATININE RATIO 19.4 (10-20); CALCIUM 8.1 mg/dl (8.5-10.1); CREATININE 0.79 mg/dl (0.60-1.40); POTASSIUM 3.5 mmol/L (3.5-5.1)
[2016-10-25 07:15] VITALS: BP 125/79; PULSE 64; TEMP 36.8; O2SAT 95
[2016-10-25] MEDS ORDERED: INSULIN GLARGINE SOLOSTAR 100 UNITS/ML 3 ML PEN SC SCH (09:00)
[2016-10-25] MEDS: INSULIN ASPART 100 UNITS/ML 3 ML PEN SC SCH ×3 (09:30→17:15)
[2016-10-25] MEDS ORDERED: INSULIN GLARGINE SOLOSTAR 100 UNITS/ML 3 ML PEN SC ONE (11:00)
[2016-10-25] MEDS: LACTATED RINGER'S 1000ML 1,000 ML IV SCH (13:37)
[2016-10-25 15:09] VITALS: BP 124/70; PULSE 73; TEMP 36.6; O2SAT 95
[2016-10-25] MEDS ORDERED: INSU32MI13 SQ (16:24)
[2016-10-25] MEDS ORDERED: INSDGIPEN SC (16:24)
[2016-10-25] MEDS ORDERED: IBUP-1450 PO (16:25)
--- NOTE | 2016-10-25 16:39 | Hospitalist Progress Note ---
Hospitalist Progress Note Date of Service Oct 25, 2016. (Salvador Luis MD) Subjective Pt evaluation today including: conversation w/ patient, physical exam, chart review, lab review, conversation w/ intelligence consultant, review of inpatient medication list Pain: Mild-moderate pain over umbilicus PO Intake: good Voiding: no voiding problems Patient with no acute events overnight Patient continues to do well and able to tolerate full diet. Still having some pain over umbilical incision site No nausea, vomiting, diarrhea, or fevers Constitutional: No fever, No chills, No sweats Respiratory: No cough, No sputum, No shortness of breath Cardiovascular: + chest pain, + edema, + palpitations Abdomen: + pain (over umbilical incision) (Salvador Luis MD) Medications Current Inpatient Medications Medications (Trade) Dose Ordered Sig/Elmo Route Start Time Stop Time Status Last Admin Dose Admin Hydromorphone HCl (Dilaudid Inj) 1 mg Q3R PRN IV 10/24/16 00:15 11/07/16 00:14 Ondansetron HCl (Zofran Inj) 4 mg Q6H PRN IV 10/24/16 00:15 11/23/16 00:14 Albuterol/ Ipratropium (Duoneb) 3 ml Q4R PRN INH 10/24/16 01:00 11/23/16 00:59 10/24/16 21:23 3 ML Trazodone HCl (Desyrel Tab) 150 mg HS PO 10/24/16 21:00 11/23/16 20:59 10/24/16 22:00 50 MG Glucose (Glucose 40% Gel) 15-30 GRAMS 15 GRAMS... UD PRN PO 10/24/16 02:00 11/23/16 01:59 Glucose (Glucose Chew Tab) 4-8 Tablets 4 Tabl... UD PRN PO 10/24/16 02:00 11/23/16 01:59 Dextrose (Dextrose 50% 50ML Syringe) 25-50ML OF 50% DW IV FOR... UD PRN IV 10/24/16 02:00 11/23/16 01:59 Glucagon (Glucagon Inj) 1 mg UD PRN SQ 10/24/16 02:00 11/23/16 01:59 Lactated Ringer's 1,000 ml @ 50 mls/hr Q20H IV 10/24/16 07:45 11/23/16 07:44 10/25/16 13:37 50 MLS/HR Heparin Sodium (Porcine) (Heparin Sq 5000 Unit/0.5ml) 5,000 unit Q8 SQ 10/24/16 14:00 11/23/16 13:59 10/25/16 13:29 5,000 UNIT Oxycodone/ Acetaminophen (Percocet 5-325mg Tab) 1 tab Q4H PRN PO 10/24/16 07:45 11/07/16 07:44 10/25/16 13:41 1 TAB Piperacillin Sod/ Tazobactam Sod 3.375 gm/Dextrose 115 ml @ 200 mls/hr Q6H IV 10/24/16 16:00 11/03/16 15:59 10/25/16 16:15 200 MLS/HR Insulin Aspart (novoLOG ASPART) SLIDING SCALE [facility] [place] 10/24/16 21:00 11/23/16 20:59 10/25/16 13:27 3 UNITS Insulin Human Regular 250 units/ Sodium Chloride 252.5 ml @ 2.2 mls/hr DAILY@1130 IV 10/24/16 20:00 10/25/16 17:00 10/25/16 14:00 1.7 MLS/HR Insulin Glargine (Lantus Solostar Pen) 20 units DAILY [place] 10/26/16 09:00 11/24/16 08:59 (Salvador Luis MD) Objective Vital Signs Date Time Temp Pulse Resp B/P (MAP) Pulse Ox O2 Delivery O2 Flow Rate FiO2 10/25/16 15:09 36.6 73 18 124/70 (88) 95 Room Air 10/25/16 08:00 Room Air 10/25/16 07:15 36.8 64 16 125/79 (94) 95 Room Air 10/25/16 04:00 36.6 79 16 124/76 (92) 97 Room Air 10/24/16 23:44 Room Air 10/24/16 22:50 36.9 81 17 122/69 (86) 96 Room Air 10/24/16 21:24 66 14 100 Nasal Cannula 3.0 (Salvador Luis MD) Physical Exam General Appearance: WD/WN, no apparent distress Respiratory/Chest: lungs clear, no respiratory distress, no accessory muscle use Cardiovascular: regular rate, rhythm, no edema, no murmur Abdomen: normal bowel sounds, soft, + tenderness (mild tenderness in lower abdomen), + pertinent finding (no erythema or discharge surrounding umbilicus) Extremities: non-tender, no pedal edema, no calf tenderness Neurologic/Psychiatric: alert, normal mood/affect, oriented x 3 (Salvador Luis MD) Laboratory Results Last 24 Hours Test 10/24/16 17:11 10/24/16 18:39 10/24/16 20:39 10/24/16 22:54 Bedside Glucose 314 mg/dl 319 mg/dl 229 mg/dl 130 mg/dl Test 10/25/16 00:02 10/25/16 01:01 10/25/16 02:05 10/25/16 04:06 Bedside Glucose 137 mg/dl 129 mg/dl 132 mg/dl 154 mg/dl Test 10/25/16 05:53 10/25/16 06:05 10/25/16 07:07 10/25/16 08:00 White Blood Count 10.26 K/uL Red Blood Count 4.85 M/uL Hemoglobin 14.6 g/dL Hematocrit 41.6 % Mean Corpuscular Volume 85.8 fL Mean Corpuscular Hemoglobin 30.1 pg Mean Corpuscular Hemoglobin Concent 35.1 g/dl RDW Standard Deviation 39.4 fL RDW Coefficient of Variation 12.6 % Platelet Count 157 K/uL Mean Platelet Volume 12.0 fL Sodium Level 137 mmol/L Potassium Level 3.5 mmol/L Chloride Level 102 mmol/L Carbon Dioxide Level 27 mmol/L Anion Gap 8.0 mmol/L Blood Urea Nitrogen 15 mg/dl Creatinine 0.79 mg/dl Est Creatinine Clear Calc Drug Dose 132.6 ml/min Estimated GFR () 134.8 Estimated GFR (Non- 116.3 BUN/Creatinine Ratio 19.4 Random Glucose 180 mg/dl Calcium Level 8.1 mg/dl Bedside Glucose 182 mg/dl 154 mg/dl 141 mg/dl Test 10/25/16 09:06 10/25/16 10:04 10/25/16 11:31 10/25/16 11:57 Bedside Glucose 132 mg/dl 197 mg/dl 144 mg/dl 130 mg/dl Test 10/25/16 13:02 10/25/16 14:18 10/25/16 15:02 Bedside Glucose 113 mg/dl 205 mg/dl 196 mg/dl (Salvador Luis MD) Assessment and Plan This is a 36 yo m s/p appendectomy and has a history of DM and asthma. We have been consulted to be involved in the patients medical management Acute appendicitis - Pain control with percocet q4 prn -----> will be discharged with ibuprofen PRN for pain - surgery yesterday - stopped IVF as patient taking adequate PO - Pip Tazo IV stopped as patient being discharged today - diet advanced to regular diabetic diet- tolerating well at discharge DMII - glipizide stopped - patient started with Insulin drip last night as BSG greater than 250 on two back to back readings and goal of 130-180 - Patient given 5 units of lantus and another 15 of lantus this morning. Switch off insulin drip at 5pm and assess BSG - Will be discharged on 20 units of lantus daily - Ordered HBA1c = still pending at discharge - 150 pound unintentional weight loss, likely to be diabetes but must keep differential broad for outpatient workup Asthma- Mild persistent asthma - Duoneb available prn - patient would benefit from a daily low dose ICS as his asthma is currently not well controlled. will defer to PCP Insomnia - Trazodone hs cont'd DVT Prophylaxis - heparin subq 5000 units q8 Dispo - discharge today - follow up with PCP FULL CODE Discharge planning: home (Salvador Luis MD) Reviewed: Pt Seen/Exam by Me (Beverley Burks MD) History Resident Physician Supervision Note: I interviewed and examined the patient. Discussed with Dr. Luis and agree with findings and plan as documented in the note. Any exceptions or clarifications are listed here: Glucose readings improved on insulin gtt and will transition back to Lantus today and dc to home. Appy resolved and post-op course expected. Vitals reviewed NAD, AAOx3 RRR no mgr CTAB breathing unlabored Abd+ BS, soft, mild TTP at incision sites but no guarding or rebound tenderness Ext no edema SKin: incision sites with steri strips in place 36 yo male with a h/o DMII, here with acute appendicitis DMII with hyperglycemia and nlong term insulin needed--> recently dxd and placed on metformin with significant diarrhea, switched to glipizide just days prior to admission for acute appy -check A1C for idea of control but based on report of home glucose checks, I suspect HgbA1C will be > 10%--> f/u as outpt -started Lantus here and now on insulin gtt--> calculated total need for insulin and will start Lantus 20 units daily and titrate up by 2 unitsd q3 days for AM fasting glucose > 140; consider adding on Novolog for largest meal of day as outpt Discussed importance of good glycemic control, need for pancreatic rest by using insulin, Ophthalmology consultation as outpt, checking feet daily, will need ACEI and statin eventually as well. Recommend stopping glipizide as doesn' t need when on insulin -consider restarting metformin perhaps at lower dose or XR form to limit diarrhea if pt agreeable as outpt after recovers from appy Documented By: Beverley Burks (Beverley Burks MD)
--- NOTE | 2016-10-25 16:42 | Discharge Instructions ---
Discharge Instructions Date of Service Oct 25, 2016. Admission Reason for Admission: Appendicitis, Diabetes Discharge Discharge Diagnosis / Problem: Appendicitis, Diabetes, Asthma Discharge Goals Goal(s): Decrease discomfort, Improve disease control, Therapeutic intervention , Prevent Disease Progression Activity Recommendations Activity Limitations: per Instructions/Follow-up section . Instructions / Follow-Up Instructions / Follow-Up Per Appendicitis please follow discharge instruction from the surgery team Diabetes- we will be sending you home with a daily insulin pen. Please take this once daily in the morning - please check your fasting morning blood sugars and record them daily. For the first week check your blood sugars 2 hours after the start of each meal and record them - titrate lantus 2 units every 3 days for morning fasting blood glucose levels greater than 140 - you can buy glucose tablets at the pharmacy. please take one tablet if you start to feel dizzy, light headed, tremulous, fatigued, sweaty or hungry. These are all symptoms of hypoglycemia. - we are still awaiting for your Hba1c lab result which will give us an indication of your blood sugar results over the past 2-3 months. - please follow up with Dr. Luis for further management of your diabetes Asthma - please continue your home inhalers Current Hospital Diet Patient's current hospital diet: Diabetes Type 2 Diet Discharge Diet Recommended Diet: Diabetes Type 2 Diet Procedures Procedures Performed: Laparoscopic Appendectomy Pending Studies Studies pending at discharge: yes List of pending studies: HbA1c Laboratory Results Hemoglobin A1c Test 10/25/16 05:53 Range/Units Medical Emergencies . Who to Call and When: Medical Emergencies: If at any time you feel your situation is an emergency, please call 911 immediately. . Non-Emergent Contact Non-Emergency issues call your: Primary Care Provider . . "Provider Documentation" section prepared by Salvador Luis. . VTE Core Measure Inpt VTE Proph given/why not?: Unfractionated heparin SQ
[2016-10-25 17:52] VITALS: BP 124/70; PULSE 73; TEMP 36.6; O2SAT 95
[2016-10-26 06:41] LABS: ESTIMATED AVERAGE GLUCOSE 249 mg/dl; HA1C FLAG Normal (Normal)
[2016-10-26] MEDS ORDERED: INSULIN GLARGINE SOLOSTAR 100 UNITS/ML 3 ML PEN SC SCH (09:00)
[2016-10-28 13:27] VITALS: Ht 165.1 cm; Wt 87.3 kg
== END 2016-10-25 19:09 | disposition home or self-care (01) | DRG 340 ==
LOC: C.EDA 23:32 → C.MSW 10-24 00:35 → ENRESERV 10-24 00:49 → UNDODISIN 10-25 11:37
PROVIDERS: ADMIT Surgery; ATTEND Surgery
PROC: 0DTJ4ZZ Resection of Appendix, Percutaneous Endoscopic Approach (ICD-10-PCS; principal; 2016-10-24 05:41)
DX: K35.3 Acute appendicitis with localized peritonitis (principal); E11.65 Type 2 diabetes mellitus with hyperglycemia; F17.200 Nicotine dependence, unspecified, uncomplicated; G47.00 Insomnia, unspecified; J45.30 Mild persistent asthma, uncomplicated; Z82.3 Family history of stroke